=== PATIENT | female | born 1970 | race African-American/Black ===

== ENCOUNTER → 2018-09-25 | Outpatient (CLI) | payer OTHER ==
[~2018-09-25] MED LIST: ALLOPURINOL 30300 M2 PO; AMBIEN 5 MG TABL5 M1 PO; BIOTIN5 MG PO; BUDEPRION PO; INDOMETHACIN 5050 M1 PO; MENEST2.5 MG PO; NORCO 5-325 TA1 EACH PO; PROTONIX 20 MG20 M1 PO; UNICOMPLEX M TA1 TA1 PO; VALIUM5 MG PO; ZOFRAN ODT4 MG PO
--- NOTE | 2018-09-28 22:27 | SLE ---
[facility] [place] [address] POLYSOMNOGRAPHY STUDY Name: TRUDY BACA Room #: REG [facility]#: [id number] Admission: 09/25/18 ������������������ Attend Phys: Christine Bhatti MD Discharge: ������������������ Date of : 72 Report #: [id number] THIS REPORT FOR: //name// CC: Christine HANSON DATE OF SERVICE: 09/25/2018 ATTENDING PROVIDER: MARGIE Ron The patient is a 48-year-old who weighs 149 pounds with a BMI of 30. The patient's Blanding score was 4. The patient underwent diagnostic sleep study performed at [facility]. During the night study, the patient spent 435 minutes in bed and slept for 380 minutes with a sleep efficiency of 87%. Sleep latency was 8.8 minutes with absent REM sleep. Overall sleep architecture showed increased stage 1 and stage 2 sleep, absent slow wave and absent REM sleep. During the night study, the patient had no obstructive mixed or central apneas. There were 7 hypopneas. The patient's apnea-hypopnea index for the entire night was 1.1 per hour. No significant change seen during supine sleep. As discussed above, REM sleep was not observed. EKG monitoring revealed an average heart rate of 66 beats per minute. No sustained arrhythmias observed. No clinically significant PLMS seen. Nocturnal oximetry study revealed an average oxygen saturation of 96% with the lowest of 89%. No clinically significant nocturnal hypoxia observed. Due to low AHI the patient did not meet the split night criteria for CPAP initiation. IMPRESSION: 1. No clinically significant sleep disordered breathing. The patient's apnea-hypopnea index for the entire night was 1.1 per hour. 2. No clinically significant nocturnal hypoxia. 3. No clinically significant periodic limb movements of sleep. RECOMMENDATIONS: 1. The patient did not meet the split night criteria for CPAP initiation due to very low AHI. [facility] [address] [place] [address] POLYSOMNOGRAPHY STUDY Name: TRUDY BACA [facility] Room #: REG [facility]#: [id number] Admission: 09/25/18 ������������������ Attend Phys: Christine Bhatti MD Discharge: ������������������ Date of : 72 Report #: [id number] 2. Avoid [employer] depressants. 3. Weight loss is advised. ��������������������������������������������� <ELECTRONICALLY SIGNED> ���������������������������������������� By: Marek Da Silva MD ��������������������������������������������� 09/28/18 2227 [id number] 192 Marek Da Silva MD /nt
== END ==
LOC: SLEEPLAB 12:42
DX: G47.00 Insomnia, unspecified (principal); G47.9 Sleep disorder, unspecified; R53.83 Other fatigue; R06.83 Snoring

== ENCOUNTER 2020-07-26 12:24 | Emergency (ER) | payer OTHER ==
[~2020-07-26] VITALS: Ht 149.9 cm; Wt 63.5 kg
[2020-07-26 13:23] LABS: URINE BILIRUBIN NEGATIVE (Negative); URINE BLOOD TRACE (Negative); URINE COLOR YELLOW; URINE GLUCOSE-RANDOM* NEGATIVE (Negative); URINE KETONES TRACE (Negative); URINE LEUKOCYTES-REFLEX NEGATIVE (Negative); URINE NITRITE-REFLEX NEGATIVE (Negative); URINE PROTEIN (DIPSTICK) NEGATIVE (Negative); URINE SPECIFIC GRAVITY <= 1.005 (1.005-1.035); URINE UROBILINOGEN 0.2 E.U./dl (0.2-1.0)
[2020-07-26 13:24] LABS: URINE CLARITY SL HAZY
[2020-07-26 13:54] LABS: HEMOGLOBIN 13.4 gm/dL (12.0-15.0); MCH 31.8 pg (26.0-34.0); MCHC 34.3 g/dL (28.0-37.0); MCV 92.7 fL (80.0-100.0); RBC 4.21 mil/uL (4.20-5.00); RDW 15.5 % (10.5-14.5); WBC 4.6 thou/uL (4.0-11.0)
[2020-07-26 14:02] LABS: CALCIUM 8.4 mg/dL (8.5-10.1); CREATININE 0.9 mg/dL (0.6-1.0); POTASSIUM 4.3 mmol/L (3.5-5.1)
[2020-07-26 14:10] LABS: ALBUMIN 3.8 g/dL (3.4-5.0); TOTAL BILIRUBIN 0.3 mg/dL (0.2-1.0)
[2020-07-26 14:24] LABS: AMP/METHAMP Negative (Negative); BARBITURATES Negative (Negative); BENZODIAZEPINES Negative (Negative); COCAINE Negative (Negative); METHADONE Negative (Negative); OPIATES Negative (Negative); PCP Negative (Negative)
[2020-07-26 18:02] VITALS: BP 150/92
--- NOTE | 2020-07-27 07:21 | EKG ---
[address] [address] ELECTROCARDIOGRAM REPORT Name: DARLING FISCHERTRUDY SANTOS [id number] Admission: 07/26/20 Attend Phys: Discharge: 07/26/20 Date of : 72 Report #: [id number] [facility] ED Test Date: 2020-07-26 Test Time: 13:59:32 Pat Name: TRUDY FISCHER Department: Room: Gender: F [employer] Laboratory Technician: : 1970 Requested By: Luisana Nicholson Order Number: [id number] MD: Joaquin Diaz Measurements Intervals [place] Rate: 124 P: 63 W[place]: 127 QRS: 39 QRSD: 82 T: 39 QT: 313 QTc: 450 Interpretive Statements Sinus tachycardia No previous ECG available for comparison Electronically Signed On 07-27-2020 7:20:44 CDT by Joaquin Diaz [email or web address] <ELECTRONICALLY SIGNED> By: Joaquin Diaz MD, [facility] 07/27/20 0720 1359 [id number] Joaquin Diaz MD, FACC /EPI
== END 2020-07-26 18:03 | disposition home or self-care (01) ==
LOC: ER 12:24
PROVIDERS: Nurse Practitioner Family
DX: S01.111A Laceration without foreign body of right eyelid and periocular area, initial encounter (principal); F10.920 Alcohol use, unspecified with intoxication, uncomplicated; E86.0 Dehydration; H81.09 Meniere's disease, unspecified ear; Z98.84 Bariatric surgery status; Z98.890 Other specified postprocedural states; Z90.711 Acquired absence of uterus with remaining cervical stump; Z79.899 Other long term (current) drug therapy; W19.XXXA Unspecified fall, initial encounter; Y93.89 Activity, other specified; Y92.89 Other specified places as the place of occurrence of the external cause; Y99.8 Other external cause status